=== PATIENT | male | born 1985 | race Caucasian/White ===

== ENCOUNTER → 2022-06-07 | Outpatient (CLI) | payer OTHER | LOC: M RAD 09:27 | PROVIDERS: ATTEND Nurse Practitioner Family | DX: M79.622 Pain in left upper arm (principal); W45.8XXA Other foreign body or object entering through skin, initial encounter ==

== ENCOUNTER 2022-06-14 16:00 | Outpatient (RCR) | payer OTHER | END 2022-07-01 | LOC: M PT 16:00 | PROVIDERS: ATTEND Nurse Practitioner Family | DX: L40.9 Psoriasis, unspecified (principal) ==

== ENCOUNTER → 2023-07-31 | Outpatient (CLI) | payer OTHER ==
[2023-07-31 15:47] LABS: BASO % 0.4 % (0.0-1.0); EOS # 0.1 10^3/uL (0.0-0.5); EOS % 2.4 % (0.0-3.0); HEMATOCRIT 41.2 % (42.0-52.0); HEMOGLOBIN 12.6 g/dl (13.5-17.5); LYMPH # 0.8 10^3/uL (1.5-5.0); LYMPH % 15.7 % (24.0-44.0); MEAN CORPUSCULAR HEMOGLOBIN 22.1 pg (27.0-33.0); MEAN CORPUSCULAR HGB CONC 30.6 g/dl (32.0-36.5); MEAN CORPUSCULAR VOLUME 72.4 fl (80.0-96.0); MONO # 0.4 10^3/uL (0.0-0.8); MONO % 7.9 % (2.0-8.0); NEUTROPHILS # 3.5 10^3/uL (1.5-8.5); NEUTROPHILS % 71.6 % (36.0-66.0); PLATELET COUNT, AUTOMATED 229 10^3/uL (150-450); RED BLOOD COUNT 5.69 10^6/uL (4.30-6.10); WHITE BLOOD COUNT 4.9 10^3/uL (4.0-10.0)
[2023-07-31 15:55] LABS: ERYTHROCYTE SEDIMENTATION RATE 42 mm/hr (0-15)
[2023-07-31 16:08] LABS: ALBUMIN 4.2 G/DL (3.2-5.2); ALKALINE PHOSPHATASE 105 U/L (46-116); ALT/SGPT 36 U/L (7.0-40); AST/SGOT 16 U/L (<34); BILIRUBIN,TOTAL 0.4 MG/DL (0.3-1.2); BLOOD UREA NITROGEN 10 MG/DL (9-23); CALCIUM LEVEL 9.2 MG/DL (8.5-10.1); CARBON DIOXIDE LEVEL 29 MMOL/L (20-31); CHLORIDE LEVEL 104 MMOL/L (98-107); CREATININE FOR GFR 0.89 MG/DL (0.70-1.30); GLOMERULAR FILTRATION RATE > 60.0 (>60); GLUCOSE, FASTING 81 MG/DL (60-100); RHEUMATOID FACTOR QUANT < 3.5 IU/ML (<14); SODIUM LEVEL 141 MMOL/L (136-145); TOTAL PROTEIN 7.3 G/DL (5.7-8.2)
[2023-07-31 16:34] LABS: HIV 1&2 SCREEN NEGATIVE (NEGATIVE)
[2023-07-31 16:42] LABS: HEPATITIS C VIRUS ABY INDEX 0.02 INDEX (<0.8)
[2023-08-03 15:34] LABS: COMPLEMENT C3 84.9 MG/DL (84.0-160.0); COMPLEMENT C4 9.1 MG/DL (12-36); IMMUNOGLOBULIN G 900 MG/DL (650-1600)
== END ==
LOC: M PLALAB 12:19
PROVIDERS: ATTEND Internal Medicine Infectious Disease
DX: R59.0 Localized enlarged lymph nodes (principal); R61 Generalized hyperhidrosis; J18.9 Pneumonia, unspecified organism; J84.10 Pulmonary fibrosis, unspecified

== ENCOUNTER → 2023-08-16 | Outpatient (CLI) | payer OTHER ==
[2023-08-16 16:19] LABS: URIC ACID 6.7 MG/DL (3.7-9.2)
== END ==
LOC: M PLALAB 13:04
PROVIDERS: ATTEND Internal Medicine Infectious Disease
DX: L40.0 Psoriasis vulgaris (principal); R59.0 Localized enlarged lymph nodes; R77.8 Other specified abnormalities of plasma proteins

== ENCOUNTER → 2023-09-21 | Outpatient (REF) | payer OTHER ==
[~2023-09-21] MED LIST: AMLO1TAB25; ELIQ5TAB PO; FERR325T81 PO; HYDR-3490; LOSA100T46; METO1TAB32; PANT40TA29 PO
[2023-09-21 16:48] LABS: APPEARANCE, URINE CLEAR (CLEAR); BACTERIA, URINE AUTO NEGATIVE (NEGATIVE); BILIRUBIN, URINE AUTO NEGATIVE (NEGATIVE); BLOOD, URINE BLOOD NEGATIVE (NEGATIVE); COLOR, URINE YELLOW (YELLOW); GLUCOSE, URINE (UA) AUTO NEGATIVE (NEGATIVE); KETONE, URINE AUTO TRACE mg/dL (NEGATIVE); LEUKOCYTE ESTERASE, URINE AUTO NEGATIVE (NEGATIVE); MUCUS, URINE SMALL (NEGATIVE); NITRITE, URINE AUTO NEGATIVE (NEGATIVE); PROTEIN, URINE AUTO NEGATIVE (NEGATIVE); RBC, URINE AUTO 0 /HPF (0-3); SPECIFIC GRAVITY URINE AUTO 1.017 (1.002-1.035); SQUAMOUS EPITHELIAL CELL UR AU 0 /HPF (0-6); UROBILINOGEN, URINE AUTO 0.2 mg/dL (0.0-2.0); WBC, URINE AUTO 1 /HPF (0-3)
[2023-09-21 17:05] LABS: BASO % 0.2 % (0.0-1.0); EOS % 0.7 % (0.0-3.0); HEMATOCRIT 39.3 % (42.0-52.0); HEMOGLOBIN 11.7 g/dl (13.5-17.5); LYMPH # 0.6 10^3/uL (1.5-5.0); LYMPH % 12.7 % (24.0-44.0); MEAN CORPUSCULAR HEMOGLOBIN 20.6 pg (27.0-33.0); MEAN CORPUSCULAR HGB CONC 29.8 g/dl (32.0-36.5); MEAN CORPUSCULAR VOLUME 69.1 fl (80.0-96.0); MONO # 0.4 10^3/uL (0.0-0.8); MONO % 7.6 % (2.0-8.0); NEUTROPHILS # 3.6 10^3/uL (1.5-8.5); NEUTROPHILS % 78.1 % (36.0-66.0); PLATELET COUNT, AUTOMATED 219 10^3/uL (150-450); RED BLOOD COUNT 5.69 10^6/uL (4.30-6.10); WHITE BLOOD COUNT 4.6 10^3/uL (4.0-10.0)
[2023-09-21 17:08] LABS: TOTAL PROTEIN,RANDOM URINE 21.2 MG/DL (0.0-14.0)
[2023-09-21 17:13] LABS: CREATININE,RANDOM URINE 204.5 MG/DL
[2023-09-21 17:28] LABS: COMPLEMENT C3 87.1 MG/DL (90.0-170.0); COMPLEMENT C4 7.4 MG/DL (12-36)
[2023-09-21 17:30] LABS: ERYTHROCYTE SEDIMENTATION RATE 72 mm/hr (0-15)
[2023-09-21 17:34] LABS: ALBUMIN 3.9 G/DL (3.2-5.2); ALKALINE PHOSPHATASE 103 U/L (46-116); ALT/SGPT 31 U/L (7.0-40); AST/SGOT 14 U/L (<34); BILIRUBIN,TOTAL 0.4 MG/DL (0.3-1.2); BLOOD UREA NITROGEN 15 MG/DL (9-23); CALCIUM LEVEL 8.7 MG/DL (8.5-10.1); CARBON DIOXIDE LEVEL 27 MMOL/L (20-31); CHLORIDE LEVEL 103 MMOL/L (98-107); CREATININE FOR GFR 0.94 MG/DL (0.70-1.30); GLOMERULAR FILTRATION RATE > 60.0 (>60); GLUCOSE, FASTING 76 MG/DL (60-100); POTASSIUM SERUM 3.7 MMOL/L (3.5-5.1); SODIUM LEVEL 138 MMOL/L (136-145)
== END ==
LOC: M SFHCRHEU 13:12
PROVIDERS: ATTEND Internal Medicine Rheumatology
DX: L40.8 Other psoriasis (principal); R76.8 Other specified abnormal immunological findings in serum; R53.83 Other fatigue; M25.50 Pain in unspecified joint; R79.82 Elevated C-reactive protein (CRP)

== ENCOUNTER → 2024-01-24 | Outpatient (REF) | payer OTHER | LOC: M SFHCRHEU 15:50 | PROVIDERS: ATTEND Internal Medicine Rheumatology | DX: Z53.9 Procedure and treatment not carried out, unspecified reason (principal) ==

== ENCOUNTER 2024-02-14 09:07 | Day surgery (SDC) | payer OTHER ==
[~2024-02-14] VITALS: Ht 175.3 cm; Wt 115.0 kg
[~2024-02-14 09:07] MED LIST changes: -AMLO1TAB25; +AMLO1TAB25 PO; +FOLI1TAB11 PO; -HYDR-3490; +HYDR-3490 PO; +HYDR200T46 PO; -LOSA100T46; +LOSA100T46 PO; +METH2.5T48 PO; -METO1TAB32; +METO1TAB32 PO; +PRED5TA PO
[2024-02-14] MEDS: NS 1,000 ML IV ONE (10:33)
[2024-02-14] MEDS ORDERED: LIDOCAINE 2% 100MG/5ML SDV (FOR ANES.) As Ordered ONE (12:10)
[2024-02-14] MEDS ORDERED: propofoL 200 MG/20 ML VIAL As Ordered ONE (12:10)
[2024-02-14] MEDS ORDERED: fentaNYL 100 MCG/2 ML INJECTION As Ordered ONE (12:10)
[2024-02-14 12:39] VITALS: TEMP 97
[2024-02-14 13:00] VITALS: BP 132/72; O2SAT 98
== END 2024-02-14 13:18 | disposition home or self-care (01) ==
LOC: M OPP 09:07
PROVIDERS: ATTEND Internal Medicine Gastroenterology
DX: D12.3 Benign neoplasm of transverse colon (principal); D12.5 Benign neoplasm of sigmoid colon; K63.5 Polyp of colon; D50.9 Iron deficiency anemia, unspecified; I48.91 Unspecified atrial fibrillation; M32.9 Systemic lupus erythematosus, unspecified; G47.30 Sleep apnea, unspecified; Z99.89 Dependence on other enabling machines and devices; Z79.01 Long term (current) use of anticoagulants; Z79.1 Long term (current) use of non-steroidal anti-inflammatories (NSAID); Z79.631 Long term (current) use of antimetabolite agent; Z79.899 Other long term (current) drug therapy; Z88.1 Allergy status to other antibiotic agents
CPT/HCPCS: 43239; 45385; 88305; J3010

== ENCOUNTER → 2024-03-04 | Outpatient (REF) | payer OTHER | LOC: M SFHCRHEU 08:47 | PROVIDERS: ATTEND Internal Medicine Rheumatology | DX: M32.19 Other organ or system involvement in systemic lupus erythematosus (principal) ==